=== PATIENT | female | born 1985 | race Caucasian/White ===

== ENCOUNTER 2017-02-13 06:22 | Day surgery (SDC) | payer SELFPAY ==
[2017-02-10 09:56] VITALS: BMI 23.3
[~2017-02-13 06:22] MED LIST: LACTATED RINGERS SOLUTION 1,000 ML IV SCH; ONDANSETRON 4 MG/2 ML VIAL IVPUSH PRN; PROMETHAZINE HCL 25 MG/1 ML VIAL IVPUSH PRN; SCOPOLAMINE HYDROBROMIDE 1 PATCH PATCH.TD72 TD SCH; oxyCODONE HCL 5 MG TABLET PO PRN
[2017-02-13] MEDS ORDERED: ACETAMINOPHEN INJECTION 100 ML IVPB ONE (06:41)
[2017-02-13] MEDS ORDERED: SEVOFLURANE 250 ML BTL ONE (06:42)
[2017-02-13] MEDS ORDERED: DESFLURANE GAS 240 ML BOTTLE IH ONE (06:42)
[2017-02-13] MEDS ORDERED: PROPOFOL 20 ML ONE ×6 (06:47→11:25)
[2017-02-13] MEDS ORDERED: ONDANSETRON 4 MG/2 ML VIAL ONE ×2 (06:48→12:41)
[2017-02-13] MEDS ORDERED: DEXAMETHASONE SOD PHOSPHATE 4 MG/1 ML VIAL ONE (06:48)
[2017-02-13] MEDS ORDERED: ceFAZolin SODIUM 1 GM VIAL ONE ×3 (06:48→11:02)
[2017-02-13] MEDS ORDERED: MIDAZOLAM HCL 2 MG/2 ML SINGLE DOSE VIAL ONE ×2 (06:52)
[2017-02-13] MEDS ORDERED: LIDOCAINE 1%/EPI 1:100000 (20 ML MULTI DOSE VIAL) ONE (07:09)
[2017-02-13] MEDS ORDERED: BUPIVACAINE HCL/PF 2.5 MG/ML - 30 ML VIAL IJ ONE (07:09)
[2017-02-13] MEDS ORDERED: GENTAMICIN SO4 80 MG/2 ML VIAL ONE ×2 (07:09→11:02)
[2017-02-13] MEDS ORDERED: GUM MASTIC/STORAX/MSAL/ALCOHOL 1 DRP DROPSBTL MC ONE (07:10)
[2017-02-13] MEDS ORDERED: SCOPOLAMINE HYDROBROMIDE 1 PATCH PATCH.TD72 ONE (08:35)
[2017-02-13] MEDS ORDERED: ONDANSETRON 4 MG/2 ML VIAL IVPUSH PRN (12:42)
[2017-02-13] MEDS ORDERED: PROMETHAZINE HCL 25 MG/1 ML VIAL IVPUSH PRN (12:42)
[2017-02-13] MEDS ORDERED: oxyCODONE HCL 5 MG TABLET PO PRN (12:42)
[2017-02-13] MEDS ORDERED: LACTATED RINGERS SOLUTION 1,000 ML IV SCH (12:45)
[2017-02-13 15:55] VITALS: BP 117/69; PULSE 64; TEMP 97.6
== END 2017-02-13 14:05 | disposition home or self-care (01) ==
LOC: FASU 06:22
PROVIDERS: ATTEND Surgery
CPT/HCPCS: 84703; 94760

== ENCOUNTER 2017-08-07 06:19 | Day surgery (SDC) | payer SELFPAY ==
[2017-08-07 07:20] VITALS: BMI 27.2
[2017-08-07] MEDS ORDERED: EPINEPHrine/PF 1 MG/1 ML (1:1,000) AMPULE ONE (07:33)
[2017-08-07] MEDS ORDERED: LIDOCAINE HCL 1%, 10 MG/ML (20ML VIAL) ONE (07:33)
[2017-08-07] MEDS ORDERED: BACITRACIN 15 GM TUBE TOPICAL OINTMENT ONE (08:00)
[2017-08-07] MEDS ORDERED: MIDAZOLAM HCL 2 MG/2 ML SINGLE DOSE VIAL ONE (08:22)
[2017-08-07] MEDS ORDERED: KETOROLAC TROMETHAMINE 30 MG/1 ML VIAL ONE (08:28)
[2017-08-07] MEDS ORDERED: ONDANSETRON 4 MG/2 ML VIAL ONE ×2 (08:28→12:19)
[2017-08-07] MEDS ORDERED: LIDOCAINE HCL/PF 2% SDV 5ML VIAL ONE (08:28)
[2017-08-07] MEDS ORDERED: ROCURONIUM BROMIDE 50 MG/5 ML VIAL ONE (08:28)
[2017-08-07] MEDS ORDERED: PROPOFOL 20 ML ONE ×2 (08:28→10:54)
[2017-08-07] MEDS ORDERED: DEXAMETHASONE SOD PHOSPHATE 4 MG/1 ML VIAL ONE (08:28)
[2017-08-07] MEDS ORDERED: NEOSTIGMINE METHYLSULFATE 0.5 MG/ML - 10 ML MDV ONE (10:03)
[2017-08-07] MEDS ORDERED: GLYCOPYRROLATE 0.2 MG/1 ML VIAL ONE ×2 (10:03)
[2017-08-07] MEDS ORDERED: ONDANSETRON 4 MG/2 ML VIAL IVPUSH PRN (11:52)
[2017-08-07] MEDS ORDERED: oxyCODONE HCL 5 MG TABLET PO PRN (11:52)
[2017-08-07] MEDS ORDERED: PROMETHAZINE HCL 25 MG/1 ML VIAL IVPUSH PRN (11:52)
[2017-08-07] MEDS ORDERED: LACTATED RINGERS SOLUTION 1,000 ML IV SCH (12:00)
[2017-08-07] MEDS ORDERED: PROMETHAZINE HCL 25 MG/1 ML VIAL ONE (12:28)
[2017-08-07] MEDS ORDERED: oxyCODONE HCL 5 MG TABLET ONE (14:15)
[2017-08-07 14:27] VITALS: PULSE 68
[2017-08-07 15:01] VITALS: TEMP 98.1
[2017-08-07 15:08] VITALS: BP 110/65
== END 2017-08-07 15:10 | disposition home or self-care (01) ==
LOC: FASU 06:19
PROVIDERS: ATTEND Surgery
PROC: 0J083ZZ Alteration of Abdomen Subcutaneous Tissue and Fascia, Percutaneous Approach (ICD-10-PCS; principal; 2017-08-07 08:50)
DX: Z41.1 Encounter for cosmetic surgery (principal)
CPT/HCPCS: 84703; 94760

== ENCOUNTER 2018-09-17 09:13 | Day surgery (SDC) | payer SELFPAY ==
[2018-09-14 13:43] VITALS: BMI 25.0
[2018-09-17] MEDS ORDERED: ceFAZolin SODIUM 1 GM VIAL ONE ×4 (09:53→12:15)
[2018-09-17] MEDS ORDERED: GENTAMICIN SO4 80 MG/2 ML VIAL ONE ×2 (09:53→12:15)
[2018-09-17] MEDS ORDERED: LIDOCAINE 1%/EPI 1:100000 (20 ML MULTI DOSE VIAL) ONE (09:54)
[2018-09-17] MEDS ORDERED: BUPIVACAINE HCL/PF 2.5 MG/ML - 30 ML VIAL IJ ONE (09:54)
[2018-09-17] MEDS ORDERED: GUM MASTIC/STORAX/MSAL/ALCOHOL 1 DRP DROPSBTL MC ONE (09:54)
[2018-09-17] MEDS ORDERED: PROPOFOL 20 ML ONE (10:10)
[2018-09-17] MEDS ORDERED: MIDAZOLAM HCL 2 MG/2 ML SINGLE DOSE VIAL ONE (10:11)
[2018-09-17] MEDS ORDERED: LIDOCAINE HCL/PF 2% SDV 5ML VIAL ONE (10:11)
[2018-09-17] MEDS ORDERED: oxyCODONE HCL 5 MG TABLET PO PRN ×2 (10:25→13:32)
[2018-09-17] MEDS ORDERED: PROMETHAZINE HCL 25 MG/1 ML VIAL IVPUSH PRN (10:25)
[2018-09-17] MEDS ORDERED: LACTATED RINGERS SOLUTION 1,000 ML IV SCH (10:30)
[2018-09-17] MEDS ORDERED: ONDANSETRON 4 MG/2 ML VIAL ONE ×2 (10:39→14:16)
[2018-09-17] MEDS ORDERED: DEXAMETHASONE SOD PHOSPHATE 4 MG/1 ML VIAL ONE ×2 (10:39→14:17)
[2018-09-17] MEDS ORDERED: SODIUM CHLORIDE 0.9% P/F 10 ML VIAL IJ ONE ×2 (10:42→13:11)
[2018-09-17] MEDS ORDERED: BENZOIN/ALOE VERA/STORAX/TOLU 58 ML BOTTLE ONE (11:32)
[2018-09-17] MEDS ORDERED: KETOROLAC TROMETHAMINE 30 MG/1 ML VIAL ONE (12:21)
[2018-09-17] MEDS ORDERED: PHENYLEPHRINE HCL 10 MG/1 ML SINGLE DOSE VIAL ONE (13:11)
[2018-09-17] MEDS ORDERED: PROMETHAZINE HCL 25 MG/1 ML VIAL ONE (15:37)
[2018-09-17 16:28] VITALS: TEMP 97.8
[2018-09-17 16:48] VITALS: BP 110/65; PULSE 85
== END 2018-09-17 16:50 | disposition home or self-care (01) ==
LOC: FASU 09:13
PROVIDERS: ATTEND Surgery
PROC: 0HPU0JZ Removal of Synthetic Substitute from Left Breast, Open Approach (ICD-10-PCS; 2018-09-17)
PROC: 0HPT0JZ Removal of Synthetic Substitute from Right Breast, Open Approach (ICD-10-PCS; 2018-09-17)
PROC: 0HRV0JZ Replacement of Bilateral Breast with Synthetic Substitute, Open Approach (ICD-10-PCS; 2018-09-17)
PROC: 0HRV0JZ Replacement of Bilateral Breast with Synthetic Substitute, Open Approach (ICD-10-PCS; principal; 2018-09-17 11:00)
DX: Z41.1 Encounter for cosmetic surgery (principal)
CPT/HCPCS: 84703; 94760